=== PATIENT | female | born 1970 | race Caucasian/White ===

== ENCOUNTER 2016-09-23 16:51 | Emergency (ER) | payer OTHER ==
[~2016-09-23 16:51] MED LIST: BACTRIM DS TABL1 TA1 PO; BENTYL20 MG DOB; CIPRO250 MG PO; DICLOFENAC PO; ESTRACE42.5 GM VG; FLEXERIL10 M1 PO; FLEXERIL10 MG PO; GYNE-LOTRIMIN45 GM TOP; IBUPROFEN800 MG PO; KEFLEX500 MG PO; MICONAZOLE30 GM TP; NAPROSYN500 MG PO; ORUDIS75 M1 PO; PYRIDIUM100 MG PO
[2016-09-23 17:07] LABS: URINE SOURCE CLEAN CATCH
[2016-09-23 17:17] LABS: URINE APPEARANCE CLEAR; URINE BILIRUBIN NEG (NEG); URINE BLOOD 1+ (NEG); URINE COLOR YELLOW; URINE GLUCOSE NEG (NEG); URINE KETONE NEG (NEG); URINE LEUKOCYTE ESTERASE NEG (NEG); URINE NITRATE NEG (NEG); URINE PH 5.5 (5-8); URINE PROTEIN NEG (NEG); URINE SPECIFIC GRAVITY 1.016 (1.003-1.035); URINE UROBILINOGEN 0.2 MG/DL (NEG)
[2016-09-23 17:18] LABS: URINE BACTERIA AUWI NEG (NEGATIVE); URINE SQUAMOUS EPITHELIAL CELL OCC /[HPF]; UWBCS1 AUWI 0-2 (0-5)
[2016-09-23 17:27] LABS: CULTURE INDICATED? NO
== END 2016-09-23 17:49 | disposition home or self-care (01) ==
LOC: CFTX 16:51
PROVIDERS: Nurse Practitioner
DX: M54.5 Low back pain (principal); G89.29 Other chronic pain; F17.200 Nicotine dependence, unspecified, uncomplicated; Z90.49 Acquired absence of other specified parts of digestive tract; Z90.710 Acquired absence of both cervix and uterus
CPT/HCPCS: 81003; 96372; 99283; J1885